=== PATIENT | female | born 1945 | race Caucasian/White ===

== ENCOUNTER → 2019-12-18 10:56 | Outpatient (BNVA) | payer MEDICARE, OTHER, SELFPAY | PROVIDERS: Family Provider Nurse Practitioner Family; PCP Nurse Practitioner Family; Referring Provider Nurse Practitioner Family; Visit Provider Specialist | DX: M79.642 Pain in left hand (principal); M79.641 Pain in right hand; G56.23 Lesion of ulnar nerve, bilateral upper limbs | CPT/HCPCS: 95910 ==

== ENCOUNTER 2020-02-25 05:45 | Day surgery (SDC) | payer MEDICARE, OTHER, SELFPAY ==
[2020-02-25 05:52] VITALS: BMI 34.7
[2020-02-25 06:12] LABS: Glucose Point of Care 111 mg/dL (70-110)
[2020-02-25] MEDS: sodium chloride 0.9% 1,000 ML 30 ML IV (06:16)
--- NOTE | 2020-02-25 06:18 | ANES.PREANE2 ---
Pre-Anesthetic Assessment Pre-Anesthetic Assessment: Height/Weight: Height 1.68 m Weight 97.522 kg Preop Diagnosis: Left carpal tunnel syndrome, left long finger trigger finger Proposed Procedure: Operation Date: 02/25/20 07:00 Proposed Procedures p Carpal Tunnel Release left, carpal tunnel syndrome 87231/G56.03(Left) - Jarvis To MD s Left middle Trigger Finger Release 17415/M65.332(Left) - Jarvis To MD Familial anesthetic complications: None Was Beta Timothy taken within 24 hours: N/A Last intake: Intake Last Liquid Date 02/25/20 Last Liquid Time 05:00 Last Solid Date 02/24/20 Last Solid Time 19:00 Social: Social History: No alcohol and No tobacco Exam: Pre-Anes Outpt Exam: alert, oriented x 3, clear to auscultation bilaterally and regular rate & rhythm Airway: Cervical ROM: WNL MP: 4 Dentition: Full Additional comments: receding mandible Pulmonary: Pulmonary: Asthma CV/HEM: CV/HEM: CHF and HTN : : None reported Hepatic: Hepatic: None reported GI: GI: GERD and Hiatus hernia Metabolic: Metabolic: DM and Morbid obesity Musc/skel: Musc/skel: None reported Neuropsych: Neuropsych: Neuropathy Anesthetic Plan: ASA status: 3 Anesthesia: General and MAC Other: MAC if herb block performed Risk of > 500 ml blood loss (7ml/kg in children): No Meds/Allergies Current Medications: Current Medications Generic Name Dose Route Start Last Admin Trade Name Freq PRN Reason Stop Dose Admin Sodium Chloride 1,000 mls @ 30 ml s/hr 02/25/20 06:15 02/25/20 06:16 Sodium Chloride 0.9% IV 02/26/20 06:14 30 mls/hr .Q24H JONY Administration PFSH Anesthesia PFSH: Social History (Updated 01/01/20 @ 08:10 by Evelio Ogden LPN) Smoking and tobacco status: never smoked Alcohol intake: never Data Anesthesia Other Labs: Laboratory Results - last 48 hr 02/25/20 06:07 POC Glucose 111 Cardiac Studies: No Data to Display
--- NOTE | 2020-02-25 06:48 | PM.OPSURHP ---
Providers/Chief Complaint Primary Care Provider: Sari Quintana Chief Complaint: CAR GLENNY History of Present Illness Mariposa Lerma is a 74 year old female with left carpal tunnel syndrome and a left long finger trigger finger. She has a history of numbness and tingling her left hand is gone on for years. She is worn splints without help. She is frequently dropping things. Review of Systems General: Reports: 10 or more systems reviewed and unremarkable except in HPI and below Medications/Allergies Home Medications Medication Instructions Recorded Confirmed Last Taken Type duloxetine 60 mg PO DAILY 02/24/20 02/25/20 02/24/20 History furosemide 20 mg PO DAILY 02/24/20 02/25/20 02/24/20 History furosemide 40 mg PO DAILY 02/24/20 02/25/20 02/24/20 History gabapentin 300 mg PO BID 02/24/20 02/25/20 02/24/20 History losartan 100 mg PO DAILY 02/24/20 02/25/20 02/25/20 05:00 History metformin 500 mg PO BID 02/24/20 02/25/20 02/24/20 History metoprolol tartrate 25 mg PO DAILY 02/24/20 02/25/20 02/25/20 05:00 History pravastatin 40 mg PO DAILY 02/24/20 02/25/20 02/24/20 History Allergies Allergy/AdvReac Type Severity Reaction Status Date / Time BEV Inhibitors Allergy Severe Cough Verified 02/25/20 06:08 morphine Allergy Intermediate Nausea and Verified 02/25/20 06:08 vomitting PFSH PFSH: Social History (Updated 01/01/20 @ 08:10 by Evelio Ogden LPN) Smoking and tobacco status: never smoked Alcohol intake: never Vital Signs Weight: Weight last 48 hrs Weight 215 lb Weight 215 lb Physical Exam Narrative: EXAM NARRATIVE: HEAD: Normocephalic/atraumatic. NECK: Soft supple nontender. HEART: Normal heart sounds, regular rhythm. CHEST: Clear to auscultation. ABDOMEN: Soft nontender nondistended. On examination the patient's left hand patient has a positive carpal tunnel Tinel's test. She has tenderness over the long finger A1 levar. She has subjective numbness in her right thumb index long and ring finger to light touch. A&P Assessment and plan (1) Bilateral carpal tunnel syndrome: Patient has been previously counseled. We will proceed with a left carpal tunnel release Status: Acute (2) Trigger finger, left middle finger: The patient has been previously counseled. We will proceed with a left long finger trigger finger release. Status: Acute Coding Level of Care Code Acute Rn Unit Manager for Sangita Diaz Diagnoses Bilateral carpal tunnel syndrome G56.03 Trigger finger, left middle finger M65.332
--- NOTE | 2020-02-25 07:52 | P.OP_ITS ---
Operative Report Date of procedure: February 25, 2020 Pre-op Diagnosis: Left carpal tunnel syndrome, left long finger trigger finger Post-op diagnosis: same Post-op Findings: Same Procedure Done: Left carpal tunnel release, left long finger trigger finger release Implants: None Pathology: none sent Anesthesia: Local (Charo block) Estimated blood loss (mL): 5 Tourniquet time (min): 24 Findings: No masses or space-occupying lesions were seen within the carpal tunnel. Condition: stable Disposition: same day Brief History: See history and physical Procedure: Patient was taken to the operating room and anesthesia provided by the anesthesia service. She was prepped and draped with the arm exposed. A timeout was performed. A 3 cm long incision was made in line with the fourth ray from the distal edge of the carpal tunnel extending proximally. The subcutane ous fat and palmar fascia was divided with a scalpel blade. Under loupe magnification the ulnar neurovascular bundle was identified distally. A hemostat could be passed under the transverse carpal ligament allowing the distal 25% to be divided. A slotted guide was then passed beneath the transverse carpal ligament and the middle 50% divided. Blunt scissors were then passed over the guide freeing the proximal ligament. The tourniquet was deflated. Hemostasis provided with electrocautery. Wound edges were infiltrated with 10 cc of a half percent Marcaine solution. A transverse incision was made over the level of a 1 levar in the palm over the long finger over a distance of approximately a centimeter and a half. Under loupe magnification blunt dissection was accomplished down to the A1 levar. With adequate visualization a scalpel was used to divide the central 8 mm of that structure. Blunt scissors were then used to extend the release approximately 5 mm proximally and 5 mm distally. Tendons were pulled the road and inspected to assure there health. Skin edges were infiltrated with 4 cc of 0.5%n Marcaine. The skin edges were closed with 3-0 Prolene compressive dressin gs were applied. Skin edges were reapproximated with 3-0 Prolene. Sterile dressings were applied. The patient was taken to the recovery room in stable condition
--- NOTE | 2020-02-25 08:00 | ANE.PACU2 ---
 Inpatient post-anesthesia follow up: Airway intact: Yes Vital signs: Temperature Pulse Rate Respiratory Rate Blood Pressure Pulse Oximetry Oxygen Delivery Me thod Room Air Oxygen Flow Rate Fraction of Inspir ed Oxygen Hydration adequate: Yes Nausea and vomiting: No Pain level: 1 Mental status: Baseline
[2020-02-25 08:04] VITALS: BP 151/64; PULSE 56; RESP 16; TEMP 36.4; O2SAT 99
== END 2020-02-25 08:25 | disposition home or self-care (01) ==
PROVIDERS: Family Provider Nurse Practitioner Family; PCP Nurse Practitioner Family; Visit Provider Orthopaedic Surgery
PROC: (CPT 64721; principal; 2020-02-25 07:00)
PROC: (CPT 26055; 2020-02-25 07:00)
DX: G56.02 Carpal tunnel syndrome, left upper limb (principal); M65.332 Trigger finger, left middle finger; I11.0 Hypertensive heart disease with heart failure; I50.9 Heart failure, unspecified; E11.40 Type 2 diabetes mellitus with diabetic neuropathy, unspecified; E66.01 Morbid (severe) obesity due to excess calories; Z68.34 Body mass index [BMI] 34.0-34.9, adult
CPT/HCPCS: 26055; 64721; 12345; 36416; 82962; J0690; J2001; J2704; J3010; J3490; J7030

== ENCOUNTER 2020-03-24 06:11 | Day surgery (SDC) | payer MEDICARE, OTHER, SELFPAY ==
[2020-03-23 14:11] VITALS: BMI 34.7
[2020-03-24] MEDS: sodium chloride 0.9% 1,000 ML 30 ML IV (06:30)
--- NOTE | 2020-03-24 06:34 | ANES.PREANE2 ---
Pre-Anesthetic Assessment Pre-Anesthetic Assessment: Height/Weight: Height 1.68 m Weight 97.522 kg Preop Diagnosis: Right carpal tunnel Proposed Procedure: Operation Date: 03/24/20 07:00 Proposed Procedures p right carpal tunnel release 87641 G56.01(Right) - Jarvis To MD Familial anesthetic complications: None Was Beta Timothy taken within 24 hours: Yes Last intake: NPO > 8 hrs Social: Social History: No alcohol and No tobacco Exam: Pre-Anes Outpt Exam: alert, oriented x 3, clear to auscultation bilaterally and regular rate & rhythm Airway: Cervical ROM: WNL MP: 4 Additional comments: missing Pulmonary: Pulmonary: Asthma and Sleep apnea (cpap) CV/HEM: CV/HEM: CAD and HTN : : None reported Hepatic: Hepatic: None reported GI: GI: None reported Metabolic: Metabolic: DM and Hyperlipidemia Musc/skel: Musc/skel: None reported Neuropsych: Neuropsych: None reported Anesthetic Plan: ASA status: 3 Anesthesia: MAC Other: EVI block Risk of > 500 ml blood loss (7ml/kg in children): No PFSH Anesthesia PFSH: Social History (Updated 01/01/20 @ 08:10 by Evelio Ogden LPN) Smoking and tobacco status: never smoked Alcohol intake: never Data Anesthesia Cardiac Studies: No Data to Display
[2020-03-24 06:41] LABS: Glucose Point of Care 120 mg/dL (70-110)
[2020-03-24 06:48] VITALS: BP 148/71; PULSE 60; RESP 18; TEMP 36.4; O2SAT 97
--- NOTE | 2020-03-24 07:01 | W.PM.OPSUD ---
Surgery/Procedure H&P Update DATE OF PROCEDURE: March 24, 2020 DATE H&P PERFORMED: 01/01/20 PREOP DIAGNOSIS: Right carpal tunnel PLANNED PROCEDURE: Operation Date: 03/24/20 07:00 Proposed Procedures p right carpal tunnel release 49743 G56.01(Right) - Jarvis To MD
--- NOTE | 2020-03-24 07:32 | SUR.OPER ---
0725 - attempted to notify of surgery start. unable to reach him on his cell phone.
--- NOTE | 2020-03-24 07:42 | PM.OP ---
Operative Report Date of procedure: March 24, 2020 Pre-op Diagnosis: Right carpal tunnel Post-op diagnosis: same Post-op Findings: Same Procedure Done: Right carpal tunnel release Pathology: none sent Anesthesia: Local (Charo block) Estimated blood loss (mL): 0 Tourniquet time (min): 22 Complications: None Findings: No masses or space-occupying lesions were seen within the carpal tunnel Condition: stable Disposition: same day Procedure: Patient was taken to the operating room and anesthesia provided by the anesthesia service. She was prepped and draped with the arm exposed. A timeout was performed. A 3 cm long incision was made in line with the fourth ray from the distal edge of the carpal tunnel extending proximally. The subcutaneous fat and palmar fascia was divided with a scalpel blade. Under loupe magnification the ulnar neurovascular bundle was identified distally. A hemostat could be passed under the transverse carpal ligament allowing the distal 25% to be divided. A slotted guide was then passed beneath the transverse carpal ligament and the middle 50% divided. Blunt scissors were then passed over the guide freeing the proximal ligament. The tourniquet was deflated. Hemostasis provided with electrocautery. Wound edges were infiltrated with 10 cc of a half percent Marcaine solution. Skin edges were reapproximated with 3-0 Prolene. Sterile dressings were applied. The patient was taken to the recovery room in stable condition
[2020-03-24 07:55] VITALS: BP 179/70; PULSE 62; RESP 18; TEMP 36.3; O2SAT 97
[2020-03-24 08:15] VITALS: BP 174/84; PULSE 58; RESP 18; O2SAT 97
== END 2020-03-24 08:40 | disposition home or self-care (01) ==
PROVIDERS: PCP Nurse Practitioner Family; Visit Provider Orthopaedic Surgery
PROC: (CPT 64721; principal; 2020-03-24 07:00)
DX: G56.01 Carpal tunnel syndrome, right upper limb (principal); I25.10 Atherosclerotic heart disease of native coronary artery without angina pectoris; I10 Essential (primary) hypertension; E11.9 Type 2 diabetes mellitus without complications; E78.5 Hyperlipidemia, unspecified
CPT/HCPCS: 64721; 12345; 36416; 82962; 96365; J0690; J2001; J2704; J3490; J7030

== ENCOUNTER 2020-09-10 08:36 | Emergency (ER) | payer MEDICARE, OTHER, SELFPAY ==
[2020-09-10 08:39] VITALS: BP 198/103; PULSE 77; RESP 18; TEMP 36.2; O2SAT 95; BMI 35.2
--- NOTE | 2020-09-10 08:54 | ECG_ITS ---
[facility] Test Date: 2020-09-10 Pat Name: Mariposa Lerma Department: Room: Gender: Female [employer]: : [id number] Requested By: Asim Gross Order Number: [id number] Nitesh MD: Katie Hawkins M.D. Measurements Intervals [place] Rate: 69 P: 86 [place]: 155 QRS: -3 QRSD: 86 T: 20 QT: 391 QTc: 420 Interpretive Statements SINUS RHYTHM LOW QRS VOLTAGE IN PRECORDIAL LEADS [QRS DEFLECTION < 1.0 mV IN CHEST LEADS] INFERIOR MYOCARDIAL INFARCTION , PROBABLY OLD [40+ ms Q WAVE AND/OR ST/T ABNORMALITY IN II/aVF] No previous ECG available for comparison Electronically Signed On 09-10-2020 10:23:04 OUTSOLE TACKER by Katie Hawkins M.D. [id number]
[2020-09-10 09:14] VITALS: BP 166/93; PULSE 72; RESP 22; O2SAT 97
[2020-09-10 09:33] LABS: Basophils # 0.1 10^3/uL (0.0-0.1); Basophils % 0.7 %; Eosinophils # 0.2 10^3/uL (0.0-0.8); Eosinophils % 1.9 %; Hematocrit 37.5 % (37.0-47.0); Hemoglobin 11.6 g/dL (11.5-15.3); Lymphocytes # 1.9 10^3/uL (0.8-4.8); Lymphocytes % 15.3 %; Mean Corpuscular HGB Conc 30.9 g/dL (30.0-36.0); Mean Corpuscular Hemoglobin 27.7 pg (28.0-34.0); Mean Corpuscular Volume 89.5 fL (81-99); Mean Platelet Volume 10.8 fL (7.4-10.4); Monocytes # 0.9 10^3/uL (0.2-0.9); Monocytes % 6.9 %; Neutrophils # 9.17 10^3/uL (1.8-7.7); Neutrophils % 74.8 %; Nucleated Red Blood Cells % 0 %; Platelet Count 279 10^3/cmm (130-400); Red Blood Count 4.19 10^6/uL (4.1-5.3); Red Cell Distribution Width 14.6 % (12.1-15.1); White Blood Count 12.3 10^3/uL (4.0-10.0)
[2020-09-10 09:46] LABS: Alanine Aminotransferase 38 U/L (0-33); Albumin Level 4.1 g/dL (3.5-5.2); Alkaline Phosphatase 99 IU/L (35-105); Aspartate Amino Transferase 32 U/L (0-32); Blood Urea Nitrogen 15 mg/dL (8-23); Calcium 9.3 mg/dL (8.5-10.5); Carbon Dioxide 26 mmol/L (22-29); Chloride 95 mmol/L (98-107); Globulin 3.4 g/dL (1.3-4.6); Glucose 120 mg/dL (65-115); Lipase 24 U/L (13-60); Osmolality Calculated 278 mOsm/kg (285-295); Sodium 133 mmol/L (136-145); Total Bilirubin 0.4 mg/dL (0.15-1.2); Total Protein 7.5 g/dL (6.6-8.7)
[2020-09-10 09:55] LABS: Anion Gap 16.1 (5-19); Potassium 4.1 mmol/L (3.5-5.1)
[2020-09-10 10:03] LABS: Add Urine Microscopic? NO
--- NOTE | 2020-09-10 10:13 | ED_ITS ---
HPI - Abdominal Pain General: Chief Complaint: Abdominal Pain Stated Complaint: RUQ PAIN Time Seen by Provider: 09/10/20 08:42 History of Present Illness: HPI narrative: 74-year-old comes in complaining of right upper quadrant pain epigastric pain that began 2 days ago overnight it became much worse is worse when she takes a deep breath seems originally started in the epigastric area and radiate over the right upper quadrant does not go into her back she denies fever sweats chills denies dysuria urgency frequency or hematuria denies nausea vomiting or diarrhea. She denies any cough or shortness of breath as well. It is worse with any kind of movement and with deep inspiration she states it is better if she lays very still. She is not really taken any [id number]-[id number] medications for it she not had any pain like this before in the past. MD elicited complaint: abdominal pain Onset (ago): day(s) Pain Consistency: constant Location: Epigastric Severity: severe Quality: cramping Radiation: RUQ Exacerbating factors: movement and other (Deep inspiration) Relieving factors: rest Associated Symptoms: Reports anorexia, bloating, GI cramping and poor appetite; Denies belching, change in bowel habits, change in stool character, chills, coffee ground emesis, constipation, diarrhea, dyspepsia, dysuria, excessive flatus, fever(s), heartburn, hematochezia, hematuria, hematemesis, fecal incontinence, loose stools, melena, nausea, syncope and vomiting Review of Systems Const: Denies: fever(s) or chills ENMT: Denies: throat pain, ear or mastoid pain, nasal discharge or nasal congestion Card: Denies: syncope Resp: Denies: dyspnea, productive cough or non-productive cough GI: Reports: bloating and GI cramping; Denies: nausea, vomiting, hematemesis, coffee ground emesis, heartburn, diarrhea, constipation, belching, excessive flatus, fecal incontinence, change in bowel habits, change in stool character, hematochezia or melena : Denies: dysuria or hematuria Skin/Breast: Denies: rash or pruritus PFSH ED PFSH: Medical History (Updated 09/10/20 @ 14:11 by Asim Villarreal DO) Fibroma Fibromyalgia Hypertension Palsy, Franklin's Type 2 diabetes mellitus Surgical History (Updated 09/10/20 @ 10:18 by Asim Villarreal DO) H/O: hysterectomy History of appendectomy History of arthroplasty of right shoulder Social History (Updated 01/01/20 @ 08:10 by Evelio Ogden LPN) Smoking and tobacco status: never smoked Alcohol intake: never Physical Exam Const: COMMON NORMALS: no acute distress GENERAL APPEARANCE: cooperative and comfortable ORIENTATION/CONSCIOUSNESS: Yes awake, Yes oriented to person, Yes oriented to place and Yes oriented to time HENMT: COMMON NORMALS: normocephalic, atraumatic, hearing grossly normal bilaterally, external ears normal, EAC's normal, TM's normal bilaterally, Normal nasal mucous membranes and turbinates present, moist oral mucous membranes and oropharynx normal HEAD & SCALP: normocephalic and atraumatic NOSE: Normal nasal mucous membranes and turbinates present EXTERNAL EAR: Yes external ears normal EXTERNAL AUDITORY CANAL: EAC's normal TYMPANIC MEMBRANE: TM's normal bilaterally Eye: COMMON NORMALS: Equal, round and reactive pupils present, EOMs intact bilaterally, conjunctivae normal and no scleral icterus CONJUNCTIVA: Yes conjunctivae normal PUPIL: Yes Equal, round and reactive pupils present Neck/C-Spine: COMMON NORMALS: full ROM, no lymphadenopathy, supple and no JVD Lymph: LYMPHATIC: no lymphadenopathy noted and no lymphedema noted Resp: COMMON NORMALS: normal respiratory effort, No retractions, No use of accessory muscles and clear to auscultation bilaterally AUSCULTATION: clear to auscultation bilaterally Cardio: COMMON NORMALS: no JVD, regular rate, regular rhythm and No murmurs p resent (Cardio) RATE: regular rate RHYTHM: regular rhythm GI: COMMON NORMALS: Soft to palpation and No hepatosplenomegaly present AUSCULTATION: Yes normoactive bowel sounds PALPATION: Yes Soft to palpation, Yes Tenderness to palpation present (GI) Details: RUQ, No Guarding due to palpation present (GI) and Yes No hepatosplenomegaly present Extremity: COMMON NORMALS: normal to inspection, capillary refill normal, no clubbing, cyanosis or edema, no calf tenderness and no pedal edema Neuro: SENSORIUM/ORIENTATION: Yes oriented to person, Yes oriented to place and Yes oriented to time Skin: COMMON NORMALS: no rashes or lesions noted GENERAL SKIN EXAM: no rashes or lesions noted Course Vital Signs: Vital signs: Vital Signs Temperature 97.2 F L 09/10/20 08:39 Pulse Rate 62 09/10/20 13:17 Respiratory Rate 24 H 09/10/20 13:17 Blood Pressure 171/107 09/10/20 13:17 Pulse Oximetry 94 09/10/20 13:17 MDM - Abdominal Pain MDM Narrative: Medical decision making narrative: Discharge home with hydrocodone and ondansetron as needed follow-up with surgery for further evaluation return if has further problems Lab Data: Attestation: I reviewed the patient's lab results. Labs: Lab Results 09/10/20 09/10/20 09/10/20 Range/Units 09:05 09:05 09:26 WBC 12.3 H (4.0-10.0) 10^3/ uL RBC 4.19 (4.1-5.3) 10^6/u L Hgb 11.6 (11.5-15.3) g/dL Hct 37.5 (37.0-47.0) % MCV 89.5 (81-99) fL MCH 27.7 L (28.0-34.0) pg MCHC 30.9 (30.0-36.0) g/dL RDW 14.6 (12.1-15.1) % Plt Count 279 (130-400) 10^3/c mm MPV 10.8 H (7.4-10.4) fL Neut % (Auto) 74.8 % Lymph % (Auto) 15.3 % [place] % (Auto) 6.9 % Eos % (Auto) 1.9 % Baso % (Auto) 0.7 % Neut # (Auto) 9.17 H (1.8-7.7) 10^3/u L Lymph # (Auto) 1.9 (0.8-4.8) 10^3/u L [place] # (Auto) 0.9 (0.2-0.9) 10^3/u L Eos # (Auto) 0.2 (0.0-0.8) 10^3/u L Baso # (Auto) 0.1 (0.0-0.1) 10^3/u L Nucleated RBC % (a uto) 0 % Nucleated RBCs # 0.0 /100WBC Sodium 133 L (136-145) mmol/L Potassium 4.1 (3.5-5.1) mmol/L Chloride 95 L (98-107) mmol/L Carbon Dioxide 26 (22-29) mmol/L Anion Gap 16.1 (5-19) BUN 15 (8-23) mg/dL Creatinine 0.7 (0.5-0.9) mg/dL GFR Calculation Not Reportable Glucose 120 H (65-115) mg/dL Calculated Osmolal ity 278 L (285-295) mOsm/k g Calcium 9.3 (8.5-10.5) mg/dL Total Bilirubin 0.4 (0.15-1.2) mg/dL AST 32 (0-32) U/L ALT 38 H (0-33) U/L Alkaline Phosphata se 99 (35-105) IU/L Total Protein 7.5 (6.6-8.7) g/dL Albumin 4.1 (3.5-5.2) g/dL Globulin 3.4 (1.3-4.6) g/dL Lipase 24 (13-60) U/L Urine Color Straw (Yellow) Urine Appearance Clear (CLEAR) Urine pH 6.5 (5-7) Ur Specific Gravit y 1.005 (1.005-1.030) Urine Protein Neg (Negative) Urine Glucose (UA) Norm (Normal) Urine Ketones Negative (Negative) Urine Blood Neg (Negative) Urine Nitrate Negative (Negative) Urine Bilirubin Neg (Negative) Urine Urobilinogen Norm (Negative) mg/dL Ur Leukocyte Meagan ase Negative (Negative) EKG Data ^: EKG 1: EKG interpretation date: 09/10/20 EKG interpretation time: 09:35 Interpretation: Sinus rhythm Q waves in 3 and aVF no acute ST changes noted Discharge Plan Discharge Patient Disposition: Home Clinical Impression: Abdominal pain, Biliary colic Condition: Stable Prescriptions: New hydrocodone-acetaminophen 5-325 mg tablet 1 tab PO Q6H PRN (Reason: pain) Qty: 25 RF: 0 Zofran 4 mg tablet 4 mg PO Q6H PRN (Reason: nausea and vomiting) Qty: 20 RF: 0 No Action duloxetine 60 mg Capsule,Delayed Release(Dr/Ec) 60 mg PO DAILY Qty: 0 RF: 0 furosemide 40 mg Tablet See Rx Instructions .ROUTE .COMPLEX RF: 0 metformin 500 mg Tablet 500 mg PO DAILY RF: 0 pravastatin 40 mg Tablet 40 mg PO DAILY Qty: 0 RF: 0 losartan 100 mg Tablet 100 mg PO DAILY Qty: 0 RF: 0 gabapentin 300 mg 600 mg PO BID RF: 0 latanoprost 0.005 % Drops 1 drp OPHTHALMIC (EYE) DAILY RF: 0 aspirin 81 mg Tablet 81 mg PO DAILY RF: 0 metoprolol succinate 25 mg Tablet Extended Release 24 Hr 25 mg PO DAILY RF: 0 Discharge Orders: Discharge Order (Routine); Ordered 09/10/20 Ordered By: Asim Villarreal Referrals: Sari Quintana FNP [Primary Care Provider] - Discharge Diet: Clear Liquid Discharge Activity: Increase activity as tolerated Patient Instructions: Abdominal Pain (ED) Activity Restrictions/Additional Instructions: Case management will call for referral to general surgery clear liquid diet for the next 48 hours then advance as tolerated. Return if you have further problems. Coding Level of Care Code ED Patient Transition Specialist for Sandra Fwaraseli Exam Comprehensive
--- NOTE | 2020-09-10 10:14 | CT_ITS ---
WS: [id number] CT ABDOMEN AND PELVIS WITH CONTRAST HISTORY: Abdominal and RIGHT upper quadrant pain. Prior appendectomy. TECHNIQUE: Imaging performed of the abdomen and pelvis with IV contrast. Single phase imaging of the abdomen. Coronal and sagittal reformats are submitted. All CT scans at [facility] use at least one of these dose optimization techniques: automated exposure control; mA and/or kV adjustment per patient size (includes targeted exams where dose is matched to clinical indication); or iterativ e reconstruction. IV CONTRAST: Omnipaque 300; 95 mL IV. Oral contrast: No DLP: 1478.2 mGy.cm COMPARISON: None available. Lower thorax: Chronic interstitial fibrotic changes at the lung bases. Benign granuloma RIGHT lower l obe. Heart is normal size. Large incarcerated hiatal hernia. Liver/biliary system: Liver is normal size. There is very mild undulation along the surface of the li tammie suggesting early changes of cirrhosis. Gallbladder: Normally distended gallbladder. No stones identified. No significant pericholecystic flu id or wall thickening. Questionable minimal gallbladder wall stranding at the base. No hyperemia. Pancreas: Normal. Spleen: Normal size spleen with granulomata. Adrenal glands: Normal. Right kidney: Normal. Left kidney: Normal. Aorta: Moderate atherosclerosis. No aneurysm. Lymphadenopathy: None. Free fluid: None. GI tract: Prior appendectomy. No GI tract obstruction. There are a few diverticula distal colon witho ut inflammation. Abdominal wall: Unremarkable abdominal wall. No hernia. Pelvis: Well-distended urinary bladder. There is a tiny amount of air in the nondependent urinary tomas dder. May be from infection or recent catheterization. No free fluid or adenopathy in the pelvis. Bones: Facet joint arthritis in the lower lumbar spine. CT/CT abdomen pelvis w con* [id number] IMPRESSION: 1. Prior appendectomy. 2. Possible minimal stranding around the base of the gallbladder. No stones id entified or adjacent fluid. Gallbladder ultrasound may provide additional infor mation. 3. Early changes of cirrhosis suspected. 4. Moderate sized incarcerated hiatal hernia. 5. Moderate atherosclerosis aorta. 6. No renal obstruction.
[2020-09-10 10:34] LABS: Bilirubin Urine Neg (Negative); Blood Urine Neg (Negative); Glucose Urine UA Norm (Normal); Ketones Urine Negative (Negative); Leukocyte Esterase Urine Negative (Negative); Nitrate Urine Negative (Negative); Protein Urine Neg (Negative); Specific Gravity, Urine 1.005 (1.005-1.030); Urine Appearance Clear (CLEAR); Urine Color Straw (Yellow); Urobilinogen Urine Norm (Negative); pH Urine 6.5 (5-7)
[2020-09-10 10:59] VITALS: BP 156/73; PULSE 60; RESP 20; O2SAT 94
[2020-09-10] MEDS: iohexol 300 mg/mL 100 mL Btl IV (12:07)
--- NOTE | 2020-09-10 12:31 | US_ITS ---
WS: [id number] RIGHT UPPER QUADRANT ULTRASOUND HISTORY: RUQ abd pain COMPARISON: None available. Liver: 17.7 cm in length. Mildly enlarged liver with changes of mild hepatic steatosis. Gallbladder: Gallbladder is normally distended. Mild diffuse wall thickening measuring just greater t draper 3 mm. May be related to hepatocellular disease as there is no adjacent fluid. No stones identifie d. No pericholecystic fluid. CBD: 0.6 cm Pancreas: Normal size and echogenicity. Right kidney: 11.8 cm in length. Normal size and echogenicity. No hydronephrosis or mass. Aorta and IVC: Unremarkable abdominal aorta and IVC. No ascites. US/US gall bladder [id number] IMPRESSION: 1. No cholelithiasis or pericholecystic fluid. 2. Very mildly thickened gallbladder wall is diffuse. This may be due to hepat ocellular disease. 3. Mild hepatomegaly and hepatic steatosis.
[2020-09-10 13:17] VITALS: BP 171/107; PULSE 62; RESP 24; O2SAT 94
[2020-09-10 14:23] VITALS: RESP 20; O2SAT 99
[2020-09-10] MEDS: morphine 4 mg/mL SDV 1 mL IVP (14:23)
[2020-09-10] MEDS: ondansetron 2 mg/ML SDV 2 mL 4 MG IVP (14:23)
[2020-09-10 14:53] VITALS: BP 149/84; PULSE 78; RESP 19; O2SAT 95
--- NOTE | 2020-09-13 15:17 | DCPLANNER ---
manager case management had message to schedule a follow up appointment for patient with general surgery. manager case management e mailed Judith at [facility]. manager case management gave clinic patients information, it will printed and reviewed. Clinic will contact patient with appointment information.
--- NOTE | 2020-09-15 10:09 | DCPLANNER ---
Patient has a follow up appointment scheduled for Sunday, September 17, 2020 at 10:[address] Dumont. Clinic will call patient with appointment information
--- NOTE | 2020-09-22 13:31 | DCPLANNER ---
Patient had a follow up appointment scheduled for 09.17.20 with general surgery - patient did attend appointment.
== END 2020-09-10 14:53 | disposition home or self-care (01) ==
PROVIDERS: Emergency Provider Family Medicine; PCP Nurse Practitioner Family
DX: R10.9 Unspecified abdominal pain (principal); K80.50 Calculus of bile duct without cholangitis or cholecystitis without obstruction; Z79.82 Long term (current) use of aspirin; Z79.84 Long term (current) use of oral hypoglycemic drugs; I10 Essential (primary) hypertension; E11.9 Type 2 diabetes mellitus without complications
CPT/HCPCS: 12345; 74177; 76705; 80053; 81003; 83690; 85025; 93005; 96374; 96375; 99283; J2270; J2405; Q9967

== ENCOUNTER 2020-09-28 07:42 | Outpatient (CLI) | payer MEDICARE, OTHER, SELFPAY ==
--- NOTE | 2020-09-28 08:00 | NM_ITS ---
WS: [id number] NUCLEAR MEDICINE HIDA SCAN WITH GALLBLADDER EJECTION FRACTION HISTORY: R10.11 - Right upper quadrant pain COMPARISON: Gallbladder ultrasound 09/10/2020 TECHNIQUE: The patient was intravenously injected with 7.5 mCi of TC99m Mebrofenin. Immediate imaging over the right upper quadrant was followed by 5 minute image and additional images for a total of 60 minutes. Normal uptake of radiotracer throughout the liver. Activity identified in the gallbladder at 15 minutes and well distended by 60 minutes. Activity in the proximal small bowel was seen by 30 minutes. Good washout of the radiotracer from the liver by 60 minutes. The patient then drank 8 ounces of Ensure Plus. Ejection fraction at 60 minutes was 78%. Normal GB ej ection fraction is 35-75%. Post fatty meal symptoms: None. NM/NM hepatobiliary w phar* [id number] IMPRESSION: 1. Normal HIDA scan. 2. Normal gallbladder ejection fraction.
== END 2020-09-28 07:43 | disposition home or self-care (01) ==
PROVIDERS: PCP Nurse Practitioner Family; Visit Provider Surgery
DX: R10.11 Right upper quadrant pain (principal)
CPT/HCPCS: 78227; A9537

== ENCOUNTER 2020-12-15 10:12 | Outpatient (CLI) | payer MEDICARE, OTHER, SELFPAY ==
--- NOTE | 2020-12-15 10:21 | FL_ITS ---
WS: [id number] DOUBLE CONTRAST UPPER GI EXAMINATION HISTORY: R10.9 - Unspecified abdominal pain COMPARISON: CT 09/10/2020 FLUOROSCOPY TIME: 1.9 minutes. Barium traverses easily through the esophagus. There is mild dilatation and dysmotility of the esopha stewart. Mild delay in emptying of the barium into the stomach. There is a large incarcerated hiatal dong ia which has been previously described. As barium fills the incarcerated hernia it does empty into th e body of the stomach. No obstruction. There is no volvulus identified. Duodenal bulb is normal. There is very mild reflux identified in the distal esophagus. FL/FL upper GI w air* [id number] IMPRESSION: 1. Large incarcerated hiatal hernia. 2. Mild distal esophageal reflux.
== END 2020-12-15 10:13 | disposition home or self-care (01) ==
LOC: RADWPI 10:19
PROVIDERS: PCP Nurse Practitioner Family; Visit Provider Surgery
DX: R10.9 Unspecified abdominal pain (principal); K44.9 Diaphragmatic hernia without obstruction or gangrene; K21.9 Gastro-esophageal reflux disease without esophagitis
CPT/HCPCS: 74246

== ENCOUNTER 2021-07-07 08:43 | Outpatient (CLI) | payer MEDICARE, OTHER, SELFPAY ==
--- NOTE | 2021-07-07 09:30 | USCV_ITS ---
Mariposa Lerma Age: 75 Gender: F : 1945 Exam Date: 07/07/2021 08:58 Ordering Phys: Harshal Shrestha MD (Andy) ([email or web address] [place]) Technologist: Shana Talbot [place] [facility] [place]: HISTORY: Varicose veins. PROCEDURES: Bilateral duplex Venous Insufficiency study of the Deep and Superficial systems was carried out according to normal protocol with the patient in supine positon for deep system and dependent position for the superficial system. FINDINGS: No evidence of DVT seen in any vessel visualized at this time. Reflux present in the Rt GSV mid and SSV mid. Reflux present in the Lt SFJ,GSV prox and mid. CONCLUSIONS 1. No evidence of DVT in the above-mentioned identifiable veins. 2.Significant venous reflux of greater than 500 ms were noted at the right mid greater saphenous and mid small saphenous venous segments (0.617 and 1.76 seconds respectively). The segments were measuring 0.43 and 0.19 cm in diameter, respectively and at a depth of 2.13 and 1.43 cm from the surface 3. Significant venous reflux of greater than 500 ms were noted at the left saphenofemoral junction, proximal and mid greater saphenous vein segments(2.31, 3.98 and 3.87 seconds respectively). The segments were greater than 1 cm deep from the surface and were measuring 0.61, 0.51 and 0.49 cm respectively in diameter. Dr Georgi Gonzalez MD [facility] (Electronically Signed) Final Date: 08 July 2021 11:51 S
== END 2021-07-07 08:44 | disposition home or self-care (01) ==
LOC: RAD 08:46
PROVIDERS: PCP Nurse Practitioner Family; Visit Provider Thoracic Surgery (Cardiothoracic Vascular Surgery)
DX: I83.90 Asymptomatic varicose veins of unspecified lower extremity (principal); I87.2 Venous insufficiency (chronic) (peripheral)
CPT/HCPCS: 93970

== ENCOUNTER → 2021-08-24 08:48 | Outpatient (BNVA) | payer MEDICARE, OTHER, SELFPAY | PROVIDERS: PCP Nurse Practitioner Family; Visit Provider Thoracic Surgery (Cardiothoracic Vascular Surgery) | DX: Z20.822 Contact with and (suspected) exposure to COVID-19 (principal); I83.90 Asymptomatic varicose veins of unspecified lower extremity | CPT/HCPCS: 87635 ==

== ENCOUNTER 2021-08-29 05:56 | Day surgery (SDC) | payer MEDICARE, OTHER, SELFPAY ==
[2021-08-24 09:31] VITALS: BMI 35.5
--- NOTE | 2021-08-24 09:57 | ANES.PREANE2 ---
Pre-Anesthetic Assessment Pre-Anesthetic Assessment: Height/Weight: Height 1.68 m Weight 99.79 kg Preop Diagnosis: Symptomatic varicose veins right lower extremity Proposed Procedure: Operation Date: 08/29/21 07:00 Proposed Procedures p Phlebectomy(Not Applicable) - Harshal Shrestha MD Familial anesthetic complications: none Social: Social History: No alcohol and No tobacco Exam: Pre-Anes Outpt Exam: alert, oriented x 3, clear to auscultation bilaterally and regular rate & rhythm Airway: MP: 3 Dentition: Full Pulmonary: Pulmonary: Asthma CV/HEM: CV/HEM: HTN Metabolic: Metabolic: DM, Hyperlipidemia and Morbid obesity Musc/skel: Musc/skel: Fibromyalgia Neuropsych: 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) Anesthetic Plan: ASA status: 3 Anesthesia: Choice Risk of > 500 ml blood loss (7ml/kg in children): No PFSH Anesthesia PFSH: Medical History Fibroma Fibromyalgia Hypertension Palsy, Franklin's Type 2 diabetes mellitus Surgical History H/O: hysterectomy History of appendectomy History of arthroplasty of right shoulder Family History Other CAD (coronary artery disease) Cancer Denies family history of Diabetes Anesthesia complication Bleeding disorder Social History Smoking and tobacco status: former smoker Quit status (tobacco): has quit using tobacco Year quit tobacco: 2004 Alcohol intake: never Household members: spouse Marital status: Current occupational status: retired History of recent travel: No Data Anesthesia Cardiac Studies: No Data to Display
[2021-08-24 10:21] LABS: Add Urine Microscopic? NO; Charge for UA Resulting for Rev
[2021-08-24 10:36] LABS: Basophils # 0.1 10^3/uL (0.0-0.1); Basophils % 1.4 %; Eosinophils # 0.4 10^3/uL (0.0-0.8); Hematocrit 39.1 % (37.0-47.0); Lymphocytes # 2.1 10^3/uL (0.8-4.8); Lymphocytes % 28.6 %; Mean Corpuscular HGB Conc 30.7 g/dL (30.0-36.0); Mean Corpuscular Hemoglobin 27.7 pg (28.0-34.0); Mean Corpuscular Volume 90.3 fl (81-99); Mean Platelet Volume 10.8 fL (7.4-10.4); Monocytes # 0.5 10^3/uL (0.2-0.9); Monocytes % 7.3 %; Neutrophils # 4.12 10^3/uL (1.8-7.7); Neutrophils % 57.4 %; Nucleated Red Blood Cells % 0 %; Platelet Count 257 10^3/cmm (130-400); Red Blood Count 4.33 10^6/uL (4.1-5.3); Red Cell Distribution Width 14.8 % (12.1-15.1); White Blood Count 7.2 10^3/uL (4.0-10.0)
[2021-08-24 10:50] LABS: Anion Gap 13.1 (5-19); Blood Urea Nitrogen 19 mg/dL (8-23); Calcium 9.4 mg/dL (8.5-10.5); Carbon Dioxide 29 mmol/L (22-29); Chloride 100 mmol/L (98-107); Glucose 106 mg/dL (65-115); Osmolality Calculated 289 mOsm/kg (285-295); Potassium 4.1 mmol/L (3.5-5.1); Sodium 138 mmol/L (136-145)
[2021-08-24 10:51] LABS: Bilirubin Urine Neg (Negative); Blood Urine Neg (Negative); Glucose Urine UA Norm (Normal); Ketones Urine Negative (Negative); Leukocyte Esterase Urine Negative (Negative); Nitrate Urine Negative (Negative); Protein Urine Neg (Negative); Specific Gravity, Urine 1.005 (1.005-1.030); Urine Appearance Hazy (CLEAR); Urine Color Straw (Yellow); Urobilinogen Urine Norm (Negative); pH Urine 7 (5-7)
[2021-08-29 06:07] VITALS: BP 149/100; PULSE 66; RESP 18; TEMP 36.5; O2SAT 96
--- NOTE | 2021-08-29 06:31 | P.HP_ITS ---
Providers/Chief Complaint Primary Care Provider: Sari Quintana USER INTERFACE ENGINEER Chief Complaint: verc veins History of Present Illness Mariposa Lerma is a 75 year old female I saw originally in my clinic on June 03 as an outpatient consult for symptomatic varicose veins and a symptomatic area on the medial distal aspect of her right thigh just above her knee. She has had prior intervention back in 2009 though she was unclear as to exactly what pr ocedure she had performed. She has had 2 episodes of prior varicose vein rupture and complains of discomfort behind her right knee where there is a symptomatic and prominent varicose vein. We had duplex imaging performed in June which confirmed substantial reflux including the saphenofemoral junction on the left side and mid right greater and lesser saphenous vein reflux. Because of her increased pain in this localized area, we have offered phlebectomy to try to assist with local discomfort. She does not use tobacco, though she does have obesity and has rather short stature. CEAP classification C5 Review of Systems Const: Denies: fever(s), chills, change in appetite, change in weight, fatigue or night sweats Eyes: Denies: change in vision or blurry vision ENMT: Denies: odynophagia or hoarseness Card: Denies: chest pain, palpitations, irregular heart rhythm or edema Resp: Denies: dyspnea or productive cough GI: Reports: heartburn (Has been evaluated by Dr. Dumont for paraesophageal hernia.); Denies: abdominal pain, nausea, vomiting, dysphagia or change in bowel habits : Denies: dysuria, urinary frequency, urinary urgency or urinary hesitancy Musc: Reports: extremity pain, extremity swelling and other (Previous spontaneous varicose vein rupture) Skin/Breast: Denies: rash Neuro: Denies: headache(s), numbness in extremities, weakness in extremities or sensory changes Psych: Denies: anxiety, depression or change in appetite Endo: Denies: polyuria, polydipsia or cold intolerance Abdulaziz/Lymph: Denies: easy bruising, easy bleeding, petechiae or enlarged lymph nodes Medications/Allergies Home Medications Medication Instructions Recorded Confirmed Last Taken Type duloxetine 60 mg PO DAILY #0 02/24/20 08/29/21 08/28/21 History furosemide See Rx Instructions .ROUTE .COMPLEX 02/24/20 08/29/21 08/28/21 History gabapentin 600 mg PO BID 02/24/20 08/29/21 08/28/21 History losartan 100 mg PO DAILY #0 02/24/20 08/29/21 08/29/21 History metformin 500 mg PO DAILY 02/24/20 08/29/21 08/28/21 History pravastatin 40 mg PO DAILY #0 02/24/20 08/29/21 08/28/21 History aspirin 81 mg PO DAILY 09/10/20 08/24/21 08/19/21 History latanoprost 1 drp OPHTHALMIC (EYE) DAILY 09/10/20 08/29/21 08/28/21 History metoprolol succinate 25 mg PO DAILY 09/10/20 08/29/21 08/29/21 History Allergies Allergy/AdvReac Type Severity Reaction Status Date / Time BEV Inhibitors Allergy Severe Cough Verified 06/03/21 08:46 morphine Allergy Intermediate Nausea and Verified 06/03/21 08:46 vomitting PFSH Acute PFSH: Medical History (Updated 08/29/21 @ 06:35 by Harshal Shrestha MD) Fibroma Fibromyalgia Hypertension Palsy, Franklin's Type 2 diabetes mellitus Varicose veins of lower extremity Surgical History H/O: hysterectomy History of appendectomy History of arthroplasty of right shoulder Family History Other CAD (coronary artery disease) Cancer Denies family history of Diabetes Anesthesia complication Bleeding disorder Social History Smoking and tobacco status: former smoker Quit status (tobacco): has quit using tobacco Year quit tobacco: 2004 Alcohol intake: never Household members: spouse Marital status: Current occupational status: retired History of recent travel: No Vitals/I&O/Wt Last Vital Signs Temp 97.7 F 08/29/21 06:07 Pulse 66 08/29/21 06:07 Resp 18 08/29/21 06:07 BP 149/100 08/29/21 06:07 Pulse Ox 96 08/29/21 06:07 Physical Exam Const: COMMON NORMALS: patient oriented x3 and alert ORIENTATION/CONSCIOUSNESS: Yes oriented to person, Yes oriented to place and Yes oriented to time HENMT: COMMON NORMALS: normocephalic HEAD & SCALP: normocephalic and cranial bruits Neck/C-Spine: COMMON NORMALS: full ROM, supple, no JVD and No carotid bruits GENERAL: Yes trachea midline CERVICAL SPINE: Yes cervical ROM normal Chest: COMMONS NORMALS: normal inspection of the chest and normal palpation of entire chest wall Resp: COMMON NORMALS: normal respiratory effort, No use of accessory muscles, clear to auscultation bilaterally and percussion normal EFFORT & INSPECTION: Yes able to speak in complete sentences and Yes symmetric chest movement AUSCULTATION: clear to auscultation bilaterally PERCUSSION: percussion normal Cardio: COMMON NORMALS: no JVD, regular rate, regular rhythm, S1 normal heart sound present, S2 normal heart sound present, No gallops present (Cardio), No murmurs present (Cardio), No rub (Cardio) and Peripheral pulses 2+ throughout JUGULAR VENOUS DISTENTION: no JVD RATE: regular rate RHYTHM: regular rhythm HEART SOUNDS: S1 normal heart sound present and S2 normal heart sound present PERIPHERAL PULSES: Peripheral pulses 2+ throughout Extremity: OTHER: Lines varicosities, mostly concentrated around the medial ma lleolus with a prominent varicose vein at the distal medial aspect of the right thigh which is symptomatic with ambulation. The localized ectasias at the level of the ankle bilaterally right greater than left. Neuro: COMMON NORMALS: patient oriented x3, no focal motor deficits and no sensory deficits noted SENSORIUM/ORIENTATION: Yes alert, Yes oriented to pe rson, Yes oriented to place and Yes oriented to time GAIT: Yes Normal gait present Data : 08/24/21 09:53 08/24/21 09:53 A&P Assessment and plan (1) Varicose veins of lower extremity: Highly symptomatic isolated prominent varicose vein medial distal aspect of right thigh. We have previous discussed during consultation and office visit back in May to consider localized phlebectomy to try to decrease discomfort from this region. She states understanding and does wish to proceed. She understands the risk for infection, wound breakdown, further varicosities that may become symptomatic, failure to improve, risk for DVT, and need for follow-up. Appropriate consents have been reviewed and signed. Patient has been appropriately marked. Status: Acute Attestations Medical Necessity Statement*: Highly symptomatic varicose vein disease with chronic greater symptoms medial distal right thigh. Time Spent in Patient Care: 16 - 35 minutes Coding Level of Care Code Acute Shoe Lay Out Planner for Sandra Perales Diagnoses Varicose veins of lower extremity I83.90
[2021-08-29 06:37] LABS: Glucose Point of Care 123 mg/dL (70-110)
[2021-08-29] MEDS: sodium chloride 0.9% 1,000 ML 30 ML IV (06:45)
--- NOTE | 2021-08-29 06:45 | P.ANESUD_ITS ---
Pre-Anesthetic Update Pre-Anesthetic Assessment: Date of Surgery/Procedure: 08/29/21 Preop Neena gnosis: Right carpal tunnel Proposed Procedure: Operation Date: 08/29/21 07:00 Proposed Procedures p Phlebectomy(Not Applicable) - Harshal Shrestha MD Any changes to Pre-Anesthetic Assessment?: No Last Intake: Intake Last Liquid Date 08/28/21 Last Liquid Time 17:00 Last Solid Date 08/28/21 Last Solid Time 17:00 Labs Last 48hrs: Laboratory Results - last 48 hr 08/29/21 06:35 POC Glucose 123 H Vitals: Temperature 97.7 F 08/29/21 06:07 Temperature Source Temporal Artery S can 08/29/21 06:07 Pulse Rate 66 08/29/21 06:07 Respiratory Rate 18 08/29/21 06:07 Blood Pressure 149/100 08/29/21 06:07 Blood Pressure Karissa n 116 08/29/21 06:07 Pulse Oximetry 96 08/29/21 06:07 Oxygen Delivery Me thod 08/29/21 06:09 Exam: Pre-Anes Outpt Exam: alert, oriented x 3, clear to auscultation bilaterally and regular rate & rhythm Cardiac Studies: No Data to Display
[2021-08-29] MEDS: lidocaine 1% INJ 50 mL INJECTION (07:22)
[2021-08-29] MEDS: vancomycin 1,000 MG SDV 1000 MG IRRIGATION (07:23)
--- NOTE | 2021-08-29 08:06 | P.OP_ITS ---
Operative Report Date of procedure: August 29, 2021 Pre-op Diagnosis: Highly symptomatic varicose veins right lower extremity Post-op diagnosis: same Procedure Done: Ligation of painful varicose vein by stab phlebectomy Specimens removed/disposition: Varicose vein Surgeon: Harshal Shrestha Anesthesia: MAC and Local Complications: None Condition: stable Disposition: same day Brief History: Ms. Lerma is a 75-year-old female with known bilateral lower extremity varicose veins with prior intervention in 2009. She has a highly symptomatic varicose vein situated just proximal and medial to her right knee and the distal right thigh. She had prior spontaneous ruptures x2. Localized phlebectomy was recommended. Details the risks of procedure were carefully and frankly discussed. Proper consents have been reviewed and signed. Procedure: Ms. Lerma was taken to the operating room theater where she was carefully positioned after standing and marking of the symptomatic varicose vein. She underwent IV conscious sedation with anesthesia monitoring. Her entire right lower extremity was sterilely prepped and draped. 1% with lidocaine was infiltrated as a field block around the symptomatic varicose vein with overlying skin being very thin. #15 scalpel blade was utilized to incise over this varicose vein and dissection was continued proximally and distally until both ends of the vein were carefully isolated and secured with ligature and further with clips. This did extend down to the fascial level. The vein was then excised and a portion sent to pathology. Once hemostasis was confirmed, the subcuticular level was reapproximated with 4-0 Vicryl suture. Dermabond was applied followed by a compressive dressing. She tolerated the pr ocedure well and was awakened from IV conscious sedation. She was taken to outpatient surgery department in stable condition.
[2021-08-29 08:12] VITALS: BP 99/40; PULSE 55; RESP 16; TEMP 36.2; O2SAT 94
[2021-08-29 08:15] VITALS: BP 110/62; PULSE 57; RESP 15; O2SAT 98
--- NOTE | 2021-08-29 08:19 | P.PCN_ITS ---
PACU note PACU note: VSS, Good respiratory effort, report to PRE SCHOOL TEACHER Post-Anesthesia Exam: awake
--- NOTE | 2021-08-29 08:19 | PM.PACU ---
PACU note PACU note: VSS, Good respiratory effort, report to SCALER PACKER Post-Anesthesia Exam: awake
[2021-08-29 08:20] VITALS: BP 108/57; PULSE 58; RESP 14; TEMP 36.4; O2SAT 98
[2021-08-29 08:25] VITALS: BP 118/56; PULSE 57; RESP 16; TEMP 36.2; O2SAT 98
[2021-08-29] MEDS: HYDROcodone-acetaminophen 5-325 mg Tablet 1 TAB PO (08:52)
--- NOTE | 2021-08-29 13:45 | ANE.PACU2 ---
Inpatient post-anesthesia follow up: Airway intact: Yes Vital signs: Temperature 97.2 F Pulse Rate 57 Respiratory Rate 16 Blood Pressure 118/56 Pulse Oximetry 98 Oxygen Delivery Me thod Room Air Oxygen Flow Rate Fraction of Inspir ed Oxygen Hydration adequate: Yes Nausea and vomiting: No Pain level: 2 Mental status: Baseline
== END 2021-08-29 09:10 | disposition home or self-care (01) ==
PROVIDERS: PCP Nurse Practitioner Family; Visit Provider Thoracic Surgery (Cardiothoracic Vascular Surgery)
PROC: (CPT 37765; principal; 2021-08-29 07:00)
DX: I83.811 Varicose veins of right lower extremity with pain (principal); I10 Essential (primary) hypertension; M79.7 Fibromyalgia; E11.9 Type 2 diabetes mellitus without complications; Z79.84 Long term (current) use of oral hypoglycemic drugs; Z88.5 Allergy status to narcotic agent; Z79.82 Long term (current) use of aspirin; Z87.891 Personal history of nicotine dependence
CPT/HCPCS: 37765; 36416; 80048; 81003; 82962; 85025; 88304; J0690; J2704; J3010; J3370; J7030

== ENCOUNTER → 2021-10-03 09:26 | Outpatient (BNVA) | payer MEDICARE, OTHER, SELFPAY | PROVIDERS: PCP Nurse Practitioner Family; Visit Provider Internal Medicine Rheumatology | DX: M79.7 Fibromyalgia (principal); G56.03 Carpal tunnel syndrome, bilateral upper limbs; M65.332 Trigger finger, left middle finger; Z87.891 Personal history of nicotine dependence; Z79.02 Long term (current) use of antithrombotics/antiplatelets | CPT/HCPCS: 99204 ==

== ENCOUNTER 2021-12-13 07:29 | Outpatient (CLI) | payer MEDICARE, OTHER, SELFPAY ==
[2021-12-13 07:45] VITALS: BMI 35.2
--- NOTE | 2021-12-13 07:45 | ECG_ITS ---
[facility] Test Date: 2021-12-13 Pat Name: Mariposa Lerma Department: Room: Gender: Female Editing Clerk: Safia Cantu : 1945 Requested By: Katie Hawkins Order Number: [id number] Nitesh MD: Katie Hawkins M.D. Interpretive Statements NAME OF STUDY: LEXISCAN SESTAMIBI STRESS TEST INDICATION: Chest Pain; Dyspnea PROCEDURE: At the baseline, the blood pressure was 122/62 mm Hg with a heart rate of 58 bpm. The electrocardiogram showed sinus rhythm, normal axis with normal ST and Ts. The Lexiscan was infused over a period of 20 seconds. A total of 0.4 milligrams of Lexiscan was infused. The stress phase was continued for a total of 5 minutes. Heart rate at the end of the stress phase was 65 bpm with a blood pressure of 109/64 mm Hg. The EKG at the peak infusion revealed sinus rhythm with no significant ST-T wave changes. The study was terminated due to protocol completion. Sestamibi was injected 20 seconds after the Lexiscan infusion. Blood pressure at the end of the recovery phase was 114/66 mm Hg with a heart rate of 70 beats per minute. CONCLUSION: 1. Normal EKG response to LexiScan infusion. 2. No LexiScan induced chest pain or cardiac arrhythmia. 3. Normal blood pressure and heart rate response. 4. Sestamibi/sestamibi perfusion scan pending; see separate report. send results to Philly jang Electronically Signed On 12-14-2021 14:26:17 STEAM HAMMER OPERATOR by Katie Hawkins M.D. [email or web address]
--- NOTE | 2021-12-13 07:45 | NMCV_ITS ---
NM baltazar perf SPECT r/s* [id number] Mariposa Lerma Age: 76 Gender: F : 1945 Exam Date: 12/13/2021 08:49 Ordering Phys: Katie Hawkins MD ([email or web address]) Technologist: KENNETH Barrett Exam Location: [facility] Indications: EXERTIONAL DYSPNEA STRESS TEST Please see separate stress test report in [facility] for full findings IMAGE PROTOCOL Rest/Stress 1 Lexiscan Day Radiopharmaceutical Dose (mCi) Administration Site Administered by Rest: Tc-99m 10.6 IV KENNETH Barrett Sestamibi Stress:Tc-99m 32.9 IV KENNETH Donald Sestamibi Rest: 13-Dec-2021 60 Discovery 630 Stress: 13-Dec-2021 30 Discovery 630 0.4mg Lexiscan. Images obtained in supine and prone position. SPECT RESULTS Technical Quality: Excellent Raw Data Analysis: Normal Image Corrections: No attenuation or motion correction applied Summed Stress Score: 9 Summed Rest Score: 10 Summed Difference Score: 1 PERFUSION FINDINGS Medium sized perfusion abnormality of moderate severity of basal to apical inferolateral, mid anterolateral and mid inferior pelletier on rest and supine stress images with improved tracer uptake in prone stress images. FUNCTIONAL RESULTS (calculated via Gated SPECT) Stress Image LV EF (%): 86 Stress EDV (mL):64 TID: 0.86 Stress ESV (mL):9 FUNCTIONAL FINDINGS: The left ventricle is normal in size. Transient Ischemia Dilatation of 0.86. The left ventricular ejection fraction is normal with a value of 86%. There is normal left ventricular systolic function. There is normal left ventricular wall thickening with no regional wall motion abnormality. IMPRESSIONS 1. Medium sized perfusion abnormality of moderate severity of basal to apical inferolateral, mid anterolateral and mid inferior pelletier. This may represent attenuation artifact or old myocardial infarction in circumflex artery territory. 2. Overall left ventricular systolic function is normal without regional wall motion abnormalities. 3. The left ventricular ejection fraction is normal with a value of 86%. 4. No coronary ischemia based on this study. Katie Hawkins MD (Electronically Signed) Final Date: 16 December 2021 15:55 S
[2021-12-13] MEDS: regadenoson 0.4 Mg/5 ml Syringe IVP (09:22)
[2021-12-13 09:31] VITALS: BP 114/66; PULSE 70
== END 2021-12-13 07:30 | disposition home or self-care (01) ==
LOC: CDL 07:31
PROVIDERS: PCP Nurse Practitioner Family; Visit Provider Internal Medicine Cardiovascular Disease
DX: R07.9 Chest pain, unspecified (principal); R06.09 Other forms of dyspnea
CPT/HCPCS: 78452; 93017; A9500; J2785

== ENCOUNTER 2021-12-22 09:05 | Outpatient (CLI) | payer MEDICARE, OTHER, SELFPAY ==
--- NOTE | 2021-12-22 09:30 | USCV_ITS ---
Mariposa Lerma Age: 76 Gender: F : 1945 Exam Date: 12/22/2021 09:50 Ordering Phys: Katie Hawkins MD ([email or web address]) Technologist: Exam Location: [facility] [place] Indication: Hypertension BP: 130 / 75 HR: 55 Rhythm: Sinus Technical Quality: Adequate MEASUREMENTS (Male / Female) Normal Values 2D ECHO LV Diastolic Diameter PLAX 4.1 cm 4.2 - 5.9 / 3.9 - 5.3 cm LV Systolic Diameter PLAX 2.4 cm IVS Diastolic Thickness 1.1 cm 0.6 - 1.0 / 0.6 - 0.9 cm IVS Systolic Thickness 1.3 cm LVPW Diastolic Thickness 1.1 cm 0.6 - 1.0 / 0.6 - 0.9 cm LVPW Systolic Thickness 1.2 cm LVOT Diameter 2.0 cm LV Ejection Fraction 2D Teich 64.3 % LV Ejection Fraction MOD 2C 76.8 % LV Ejection Fraction 2C AL 75.8 % LA Diameter 3.6 cm Aorta at Sinotubular Diameter 2.3 cm M-MODE Aortic Annulus Diameter 2.8 cm LA Ao Ratio MM 1.4 MV E Point Septal Separation 0.6 cm DOPPLER AV Peak Velocity 142.0 cm/s LVOT Peak Velocity 132.0 cm/s AV Area Cont Eq vti 2.9 cm squared AV Area Cont Eq pk 2.9 cm squared MV Area PHT 5.0 cm squared Mitral E to A Ratio 0.9 MV E' Velocity 51.0 cm/s Mitral E to MV E' Ratio 11.9 Mitral E to LV E' Lateral Ratio 11.1 Mitral E to LV E' Septal Ratio 12.7 TR Peak Velocity 218.0 cm/s TR Peak Gradient 19.0 mmHg TV Peak E Velocity 84.0 cm/s Right Atrial Pressure 3.0 mmHg Pulmonary Artery Systolic Pressu 22.0 mmHg PV Peak Velocity 110.0 cm/s FINDINGS Left Ventricle Normal left ventricular size, systolic function and wall thickness, with no regional wall motion abnormalities. Left ventricular ejection fraction is estimated at 70 %. Normal diastolic function. Right Ventricle Normal right ventricular size and systolic function. Right ventricular systolic pressure 22 mmHg. Right Atrium Normal right atrial size. Left Atrium Mildly increased left atrial size. Mitral Valve Mild mitral annular calcification. No mitral valve stenosis. No significant mitral valve regurgitation. Aortic Valve Structurally normal trileaflet aortic valve. No aortic valve stenosis. No aortic valve regurgitation. Tricuspid Valve Structurally normal tricuspid valve. No tricuspid valve stenosis. Trace to mild tricuspid valve regurgitation. Pulmonic Valve Structurally normal pulmonic valve. No pulmonary valve stenosis. No pulmonary valve regurgitation. Pericardium No pericardial effusion. Aorta Normal size aortic root and proximal ascending aorta. CONCLUSIONS 1. This is a technically difficult study. Optison was used per protocol. 2. Normal left ventricular size, systolic function and wall thickness, with no regional wall motion abnormalities. Left ventricular ejection fraction is estimated at 70 %. Normal diastolic function. 3. Normal right ventricular size and systolic function. 4. Normal pulmonary artery pressure. 5. No prior similar studies to compare. Katie Hawkins MD (Electronically Signed) Final Date: 22 December 2021 13:16 Amended: 22 December 2021 13:19 C
[2021-12-22] MEDS: perflutren protein-a microsphr 0.22 mg/mL SDV 3 mL IV (10:18)
== END 2021-12-22 09:06 | disposition home or self-care (01) ==
LOC: RAD 09:07
PROVIDERS: PCP Nurse Practitioner Family; Visit Provider Internal Medicine Cardiovascular Disease
DX: R06.00 Dyspnea, unspecified (principal); I11.0 Hypertensive heart disease with heart failure; I50.9 Heart failure, unspecified
CPT/HCPCS: C8929

== ENCOUNTER → 2022-01-25 14:11 | Outpatient (BNVA) | payer MEDICARE, OTHER, SELFPAY | PROVIDERS: PCP Nurse Practitioner Family; Visit Provider Internal Medicine Cardiovascular Disease | DX: E78.5 Hyperlipidemia, unspecified (principal); E11.9 Type 2 diabetes mellitus without complications; I11.0 Hypertensive heart disease with heart failure; I50.9 Heart failure, unspecified | CPT/HCPCS: 99214 ==

== ENCOUNTER 2022-04-27 13:12 | Outpatient (CLI) | payer MEDICARE, OTHER, SELFPAY ==
--- NOTE | 2022-04-27 13:18 | MM_ITS ---
WS: [id number] BILATERAL 3D TOMOSYNTHESIS DIGITAL SCREENING MAMMOGRAM WITH CAD CLINICAL INFORMATION: SCREENING HISTORY: Screening mammogram. No current complaints. COMPARISON: TECHNIQUE: Bilateral CC and MLO views. FINDINGS: Fatty-replaced breasts bilaterally. Punctate calcifications. Vascular calcifications. No suspicious f ocal mass, asymmetry, calcifications, or architectural distortion. No evidence of malignancy. MM/[place] [id number] IMPRESSION: BI-RADS: 2-Benign FOLLOW UP: 1 Year Follow-up Recommend return to annual screening mammography.
== END 2022-04-27 13:13 | disposition home or self-care (01) ==
LOC: RAD 13:12
PROVIDERS: PCP Nurse Practitioner Family; Visit Provider Nurse Practitioner Family
DX: Z12.31 Encounter for screening mammogram for malignant neoplasm of breast (principal)
CPT/HCPCS: 77063; 77067

== ENCOUNTER → 2022-07-27 13:25 | Outpatient (BNVA) | payer MEDICARE, OTHER, SELFPAY | PROVIDERS: PCP Nurse Practitioner Family; Visit Provider Internal Medicine Cardiovascular Disease | DX: R06.00 Dyspnea, unspecified (principal); I11.0 Hypertensive heart disease with heart failure; I50.9 Heart failure, unspecified; E11.9 Type 2 diabetes mellitus without complications; Z79.84 Long term (current) use of oral hypoglycemic drugs; Z87.891 Personal history of nicotine dependence; E78.5 Hyperlipidemia, unspecified | CPT/HCPCS: 99214 ==

== ENCOUNTER 2022-08-30 19:53 | Emergency (ER) | payer MEDICARE, OTHER, SELFPAY ==
[2022-08-30 20:02] VITALS: BP 133/51; PULSE 60; RESP 14; TEMP 36.7; O2SAT 97; BMI 32.3
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
[2022-08-30 21:12] LABS: Basophils # 0.1 10^3/uL (0.0-0.1); Basophils % 0.6 %; Eosinophils # 0.4 10^3/uL (0.0-0.8); Eosinophils % 2.9 %; Hematocrit 35.2 % (37.0-47.0); Hemoglobin 11.3 g/dL (11.5-15.3); Lymphocytes # 1.8 10^3/uL (0.8-4.8); Lymphocytes % 14.2 %; Mean Corpuscular HGB Conc 32.1 g/dL (30.0-36.0); Mean Corpuscular Hemoglobin 29.6 pg (28.0-34.0); Mean Corpuscular Volume 92.1 fl (81-99); Mean Platelet Volume 10.5 fL (7.4-10.4); Monocytes # 0.9 10^3/uL (0.2-0.9); Monocytes % 6.9 %; Neutrophils # 9.49 10^3/uL (1.8-7.7); Neutrophils % 74.9 %; Nucleated Red Blood Cells % 0 %; Platelet Count 257 10^3/cmm (130-400); Red Blood Count 3.82 10^6/uL (4.1-5.3); Red Cell Distribution Width 13.9 % (12.1-15.1); White Blood Count 12.7 10^3/uL (4.0-10.0)
[2022-08-30 21:24] LABS: INR 0.99 (0.8-1.2)
[2022-08-30 21:25] LABS: Partial Thromboplastin Time 28.1 SECONDS (23.9-36.7)
[2022-08-30 21:26] VITALS: BP 133/55; PULSE 64; RESP 15; O2SAT 96
[2022-08-30 21:27] VITALS: RESP 15; O2SAT 96
[2022-08-30] MEDS: fentaNYL 50 mcg/mL INJ 2mL IVP (21:27)
[2022-08-30 21:30] LABS: Alanine Aminotransferase 25 U/L (0-33); Albumin Level 4.1 g/dL (3.5-5.2); Alkaline Phosphatase 104 U/L (35-105); Anion Gap 13.8 (5-19); Aspartate Amino Transferase 26 U/L (0-32); Blood Urea Nitrogen 28 mg/dL (8-23); Calcium 9.9 mg/dL (8.5-10.5); Carbon Dioxide 28 mmol/L (22-29); Chloride 98 mmol/L (98-107); Globulin 3.4 g/dL (1.3-4.6); Glucose 117 mg/dL (65-115); Osmolality Calculated 287 mOsm/kg (285-295); Potassium 4.8 mmol/L (3.5-5.1); Sodium 135 mmol/L (136-145); Total Bilirubin 0.2 mg/dL (0.15-1.2); Total Protein 7.5 g/dL (6.6-8.7)
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
[2022-08-30 23:47] VITALS: BP 128/56; PULSE 60; RESP 17; TEMP 36.6; O2SAT 94
[2022-08-31] VITALS: BP 137/47; PULSE 61; RESP 17; O2SAT 95
[2022-08-31 00:22] VITALS: RESP 16; O2SAT 95
[2022-08-31] MEDS: fentaNYL 50 mcg/mL INJ 2mL IVP (00:22)
== END 2022-08-31 00:38 ==
PROVIDERS: Emergency Provider Emergency Medicine; PCP Nurse Practitioner Family
DX: S82.141A Displaced bicondylar fracture of right tibia, initial encounter for closed fracture (principal); S82.831A Other fracture of upper and lower end of right fibula, initial encounter for closed fracture; V89.2XXA Person injured in unspecified motor-vehicle accident, traffic, initial encounter; E11.9 Type 2 diabetes mellitus without complications; E78.5 Hyperlipidemia, unspecified; I10 Essential (primary) hypertension; Z87.891 Personal history of nicotine dependence
CPT/HCPCS: 70450; 71045; 72125; 72170; 73562; 73590; 73700; 80053; 85025; 85610; 85730; 96374; 99285; J3010

== ENCOUNTER → 2023-03-09 10:37 | Outpatient (BNVA) | payer MEDICARE, OTHER, SELFPAY | PROVIDERS: PCP Nurse Practitioner Family; Visit Provider Internal Medicine Cardiovascular Disease | DX: R06.00 Dyspnea, unspecified (principal); I11.0 Hypertensive heart disease with heart failure; I50.9 Heart failure, unspecified; E11.9 Type 2 diabetes mellitus without complications; E78.5 Hyperlipidemia, unspecified; Z87.891 Personal history of nicotine dependence; Z79.84 Long term (current) use of oral hypoglycemic drugs | CPT/HCPCS: 99214 ==

== ENCOUNTER 2023-03-22 10:37 | Outpatient (CLI) | payer MEDICARE, OTHER, SELFPAY ==
--- NOTE | 2023-03-22 10:47 | XR_ITS ---
WS: [id number] Exam: XR thoracic spine 3V* [id number] Date/Time of Exam: 03/22/2023 11:01 AM Reason For Exam: THORACIC BACK PAIN No fracture or dislocation noted. Mild spondylosis and degenerative disc changes at all levels. Mild levoscoliosis. Marked osteopenia. Slightly increased kyphosis. XR/XR thoracic spine 3V* [id number] IMPRESSION: 1. No fracture or malalignment. 2. Degenerative changes, mild levoscoliosis and pronounced osteopenia.
== END 2023-03-22 10:38 | disposition home or self-care (01) ==
PROVIDERS: PCP Nurse Practitioner Family; Visit Provider Nurse Practitioner Family
DX: M51.34 Other intervertebral disc degeneration, thoracic region (principal); M41.84 Other forms of scoliosis, thoracic region; M85.88 Other specified disorders of bone density and structure, other site
CPT/HCPCS: 72072

== ENCOUNTER 2023-03-23 15:32 | Outpatient (CLI) | payer MEDICARE, OTHER, SELFPAY ==
[2023-03-23 16:50] LABS: Alanine Aminotransferase 16 U/L (0-33); Albumin Level 4.3 g/dL (3.5-5.2); Alkaline Phosphatase 110 U/L (35-105); Anion Gap 20.8 (5-19); Aspartate Amino Transferase 17 U/L (0-32); Blood Urea Nitrogen 47 mg/dL (8-23); Calcium 9.5 mg/dL (8.5-10.5); Carbon Dioxide 22 mmol/L (22-29); Chloride 97 mmol/L (98-107); Globulin 3.7 g/dL (1.3-4.6); Glucose 81 mg/dL (65-115); Osmolality Calculated 291 mOsm/kg (285-295); Potassium 4.8 mmol/L (3.5-5.1); Sodium 135 mmol/L (136-145); Total Bilirubin 0.2 mg/dL (0.15-1.2)
== END 2023-03-23 15:33 | disposition home or self-care (01) ==
PROVIDERS: PCP Nurse Practitioner Family; Visit Provider Family Medicine
DX: E87.5 Hyperkalemia (principal); R79.89 Other specified abnormal findings of blood chemistry
CPT/HCPCS: 36415; 80053

== ENCOUNTER 2023-03-26 12:23 | Outpatient (CLI) | payer MEDICARE, OTHER, SELFPAY ==
[2023-03-26 13:19] LABS: Alanine Aminotransferase 27 U/L (0-33); Albumin Level 4.4 g/dL (3.5-5.2); Alkaline Phosphatase 130 U/L (35-105); Blood Urea Nitrogen 29 mg/dL (8-23); Calcium 10.1 mg/dL (8.5-10.5); Carbon Dioxide 21 mmol/L (22-29); Chloride 99 mmol/L (98-107); Glucose 103 mg/dL (65-115); Osmolality Calculated 284 mOsm/kg (285-295); Sodium 134 mmol/L (136-145); Total Bilirubin 0.3 mg/dL (0.15-1.2); Total Protein 8.4 g/dL (6.6-8.7)
[2023-03-26 13:28] LABS: Anion Gap 19.1 (5-19); Aspartate Amino Transferase 37 U/L (0-32); Potassium 5.1 mmol/L (3.5-5.1)
== END 2023-03-26 12:24 | disposition home or self-care (01) ==
PROVIDERS: PCP Nurse Practitioner Family; Visit Provider Family Medicine
DX: R94.4 Abnormal results of kidney function studies (principal)
CPT/HCPCS: 36415; 80053

== ENCOUNTER 2023-06-28 15:04 | Outpatient (CLI) | payer MEDICARE, OTHER, SELFPAY ==
--- NOTE | 2023-06-28 15:35 | MM_ITS ---
WS: [id number] Bilateral screening 3D tomosynthesis digital mammogram, 06/28/2023 Clinical Data: SCREENING Comparison: 04/27/2022, 04/03/2014, 04/08/2012, 04/06/2009. Findings: The breast parenchymal pattern shows fat replacement. No spiculated masses or clustered calcification s are seen. There are no secondary signs of carcinoma. There are ductal calcifications in both breast s. Mole markers are on the breasts. Impression: 1. Negative bilateral mammogram unchanged. 2. Recommend annual screening mammograms. MM/[place] [id number] BIRADS: 1-Negative FOLLOW UP: 1 Year Follow-up The CAD rechecker was used.
== END 2023-06-28 15:05 | disposition home or self-care (01) ==
LOC: RAD 15:10
PROVIDERS: PCP Nurse Practitioner Family; Visit Provider Nurse Practitioner Family
DX: Z12.31 Encounter for screening mammogram for malignant neoplasm of breast (principal)
CPT/HCPCS: 77063; 77067

== ENCOUNTER → 2023-12-24 10:56 | Outpatient (BNVA) | payer MEDICARE, OTHER, SELFPAY | PROVIDERS: PCP Nurse Practitioner Family; Visit Provider Nurse Practitioner Family | DX: I10 Essential (primary) hypertension (principal); Z87.891 Personal history of nicotine dependence | CPT/HCPCS: 99214 ==

== ENCOUNTER 2024-06-12 12:17 | Outpatient (CLI) | payer MEDICARE, OTHER, SELFPAY ==
--- NOTE | 2024-06-12 12:24 | XR_ITS ---
WS: [id number] Chest 2 views, 06/12/2024 Clinical Data: COPD/HX OF CONGESTIVE HEART FAILURE Comparison: Portable chest, 08/30/2022. Findings: No nodules, masses or effusions are seen. There are coarse opacities throughout both lungs which have increased slightly compared to 2 years ago. The heart is normal. The pulmonary vascularity is not increased. No pneumonia or pneumothorax is seen. There is a hiatal hernia behind the heart. T he aortic arch and descending thoracic aorta show calcification and tortuosity. There is a levoscolio sis of the thoracic spine. There is right shoulder arthroplasty. XR/XR chest 2V* [id number] Impression: 1. Chronic interstitial fibrotic changes in the lungs consistent with chronic l liu disease. 2. Atherosclerosis and hiatal hernia.
== END 2024-06-12 12:18 | disposition home or self-care (01) ==
LOC: RAD 12:23
PROVIDERS: PCP Nurse Practitioner Family; Visit Provider Nurse Practitioner Family
DX: J44.9 Chronic obstructive pulmonary disease, unspecified (principal); Z86.79 Personal history of other diseases of the circulatory system; K44.9 Diaphragmatic hernia without obstruction or gangrene; I70.0 Atherosclerosis of aorta; Z96.611 Presence of right artificial shoulder joint; M41.84 Other forms of scoliosis, thoracic region
CPT/HCPCS: 71046

== ENCOUNTER 2024-11-05 10:52 | Outpatient (CLI) | payer MEDICARE, OTHER, SELFPAY ==
[2024-11-05 11:32] LABS: Bilirubin Urine Negative (Negative); Blood Urine Trace (Negative); Glucose Urine UA Negative (Normal); Ketones Urine Negative (Negative); Leukocyte Esterase Urine 2+ (Negative); Nitrate Urine Negative (Negative); Protein Urine Negative (Negative); Specific Gravity, Urine 1.005 (1.005-1.030); Urine Appearance Clear (CLEAR); Urine Color Yellow (Yellow); Urobilinogen Urine 0.2 mg/dL (Negative); pH Urine 7.5 (5-7)
[2024-11-05 11:36] LABS: Add Urine Microscopic? YES; Bacteria Urine None Seen /hpf; RBC Urine 0-2 /hpf (0-2); Squamous Epithelial Cell Urine 0-5 /hpf (0-5); WBC Urine >100 /hpf (0-5)
[2024-11-05 11:39] LABS: Add Urine Culture? Yes
[2024-11-05 11:46] LABS: Calcium 9.3 mg/dL (8.5-10.5)
[2024-11-05 11:47] LABS: Albumin Level 3.9 g/dL (3.5-5.2); Anion Gap 12.3 (5-19); Blood Urea Nitrogen 16 mg/dL (8-23); Calcium 9.3 mg/dL (8.5-10.5); Carbon Dioxide 28 mmol/L (22-29); Chloride 100 mmol/L (98-107); Ferritin 31 ng/mL (15-150); Glucose 86 mg/dL (65-115); Iron 29 ug/dL (37-145); Magnesium 2.1 mg/dL (1.7-2.3); Osmolality Calculated 282 mOsm/kg (285-295); Percent Saturation 9.2 % (20-50); Phosphorus 3.3 mg/dL (2.5-4.5); Potassium 4.3 mmol/L (3.5-5.1); Sodium 136 mmol/L (136-145); Total Iron Binding Capacity 314 mcg/dl; Unsaturated Iron Binding 285 ug/dL (112-347); Uric Acid 5.1 mg/dL (2.4-5.7)
[2024-11-05 11:49] LABS: Urine Creatinine 20 mg/dL (28-217); Urine Protein Random 7 mg/dL
[2024-11-05 11:52] LABS: UPRO/UCREAT Ratio 0.35 mg/mg CR
[2024-11-05 11:54] LABS: Parathyroid Hormone 34.3 pg/mL (15-65)
== END 2024-11-05 10:53 | disposition home or self-care (01) ==
LOC: LAB 10:56
PROVIDERS: PCP Nurse Practitioner Family
DX: E11.22 Type 2 diabetes mellitus with diabetic chronic kidney disease (principal); N17.9 Acute kidney failure, unspecified; I12.9 Hypertensive chronic kidney disease with stage 1 through stage 4 chronic kidney disease, or unspecified chronic kidney disease; N15.9 Renal tubulo-interstitial disease, unspecified; I13.0 Hypertensive heart and chronic kidney disease with heart failure and stage 1 through stage 4 chronic kidney disease, or unspecified chronic kidney disease; N18.2 Chronic kidney disease, stage 2 (mild); R80.9 Proteinuria, unspecified; D50.9 Iron deficiency anemia, unspecified; Z79.899 Other long term (current) drug therapy
CPT/HCPCS: 36415; 80048; 81001; 82040; 82310; 82570; 82728; 83540; 83550; 83735; 83970; 84100; 84156; 84550; 85018; 87086

== ENCOUNTER 2025-07-06 14:27 | Outpatient (CLI) | payer MEDICARE, OTHER, SELFPAY ==
[2025-07-06 16:04] LABS: Glucose Urine UA Negative (Normal); Nitrate Urine Negative (Negative); Specific Gravity, Urine 1.003 (1.005-1.030)
[2025-07-06 16:11] LABS: Hematocrit 35.9 % (36-47); Hemoglobin 11.60 g/dL (11.27-16.99)
[2025-07-06 16:27] LABS: Calcium 9.8 mg/dL (8.5-10.5)
[2025-07-06 16:36] LABS: Creatinine Urine, Random 9 mg/dL (28-217); Total Protein, Random Urine 8.7 mg/dL (0.0-20.0)
[2025-07-06 16:37] LABS: Microalbum Creatinine Ratio Ur 556 mg/dL (0-20)
[2025-07-06 17:02] LABS: Albumin Level 4.2 g/dL (3.5-5.2); Anion Gap 16.1 (5-19); Blood Urea Nitrogen 21 mg/dL (8-23); Calcium 9.8 mg/dL (8.5-10.5); Carbon Dioxide 29 mmol/L (22-29); Chloride 97 mmol/L (98-107); Ferritin 211 ng/mL (15-150); Glucose 83 mg/dL (65-115); Iron 38 ug/dL (37-145); Magnesium 2.4 mg/dL (1.7-2.3); Osmolality Calculated 288 mOsm/kg (285-295); Potassium 4.1 mmol/L (3.5-5.1); Sodium 138 mmol/L (136-145); Total Iron Binding Capacity 277 mcg/dl; Unsaturated Iron Binding 239 ug/dL (112-347); Uric Acid 5.6 mg/dL (2.4-5.7)
== END 2025-07-06 14:28 | disposition home or self-care (01) ==
LOC: LAB 14:30
PROVIDERS: PCP Nurse Practitioner Family
DX: N18.2 Chronic kidney disease, stage 2 (mild) (principal); N15.9 Renal tubulo-interstitial disease, unspecified; I12.9 Hypertensive chronic kidney disease with stage 1 through stage 4 chronic kidney disease, or unspecified chronic kidney disease; E11.22 Type 2 diabetes mellitus with diabetic chronic kidney disease; I13.0 Hypertensive heart and chronic kidney disease with heart failure and stage 1 through stage 4 chronic kidney disease, or unspecified chronic kidney disease; Z79.899 Other long term (current) drug therapy
CPT/HCPCS: 36415; 80048; 81001; 82040; 82044; 82310; 82728; 83540; 83550; 83735; 83970; 84100; 84156; 84550; 85014; 85018; 87086